=== PATIENT | male | born 1950 | race Caucasian/White ===

== ENCOUNTER → 2016-12-31 | Day surgery (SDC) | payer BC, MEDICARE ==
[~2016-12-31] MED LIST: ASPIRIN LO-DOSE81 MG PO; FLEXERIL10 MG PO; MELATONIN5 MG PO; NORCO 5-325 TA1 EACH PO
--- NOTE | ~2016-12-31 | OR ---
PATIENT'S NAME: ALEX LI [facility] AGE: 66 Y [address] ROOM: [place] [address] [place] [facility] [place]: 12/31/2016 OR/Procedure Report DISCHARGE DATE: FAMILY PHYSICIAN: Tameka Negron MD ATTENDING PHYSICIAN: Marj Delong SURGEON: Barrett Joshua MD WEB SITE ADMINISTRATOR: DATE OF PROCEDURE: 12/31/2016 PROCEDURE: Right L4 transforaminal epidural steroid injection. INDICATION: Lumbar degenerative disk disease with radiculopathy, canal stenosis, and foraminal stenosis. He has had a prior epidural injection in September that he had good relief from for about 3 months. Risks, benefits, and alternatives were explained to the patient, he wished to proceed. DESCRIPTION OF PROCEDURE: He was taken to the procedure room and placed in prone position. The back was prepped with Betadine x3 and sterile drape applied over top. Fluoroscopy was used to identify the L4 vertebral body. Next, the skin was numbed with 3 mL of 1% local anesthetic. Next, a 22-gauge, 5-inch spinal needle was advanced under fluoroscopic guidance. Once this was felt to be in position, 1 mL of contrast was injected, showing good epidural spread, no vascular uptake, no intrathecal uptake. Then, a mixture of 2 mL of 2% lidocaine and 10 mg of preservative-free Decadron were injected without complication. Stylette placed and needle withdrew. Hemostasis achieved. A bandage placed over top. COMPLICATIONS: None. BLOOD LOSS: None. BARRETT JOSHUA MD JJP/modl /[id number] d: 12/31/162009 t: 01/05/17 1242, OPERATIVE SUMMARY
== END | disposition disaster alternative care site (69) ==
LOC: GPOC 12:00 → GSDC 12:00
PROC: 3E0R3BZ Introduction of Anesthetic Agent into Spinal Canal, Percutaneous Approach (ICD-10-PCS; principal; 2016-12-31)
PROC: 3E0R33Z Introduction of Anti-inflammatory into Spinal Canal, Percutaneous Approach (ICD-10-PCS; 2016-12-31)
DX: M51.16 Intervertebral disc disorders with radiculopathy, lumbar region (principal); M48.06 Spinal stenosis, lumbar region; R26.2 Difficulty in walking, not elsewhere classified; M54.9 Dorsalgia, unspecified
CPT/HCPCS: J1100